=== PATIENT | female | born 1985 ===

== ENCOUNTER → 2022-06-24 | Outpatient (CLI) | payer OTHER ==
[2022-06-25 13:40] LABS: Candida species (DNA Probe) Negative (NEGATIVE); G. vaginalis (DNA Probe) Negative (NEGATIVE); T. vaginalis (DNA Probe) Negative (NEGATIVE)
[2022-06-27 13:34] LABS: Candida species (DNA Probe) Negative (NEGATIVE); G. vaginalis (DNA Probe) Negative (NEGATIVE); T. vaginalis (DNA Probe) Negative (NEGATIVE)
== END | disposition home or self-care (01) ==
LOC: LAB SHORT 17:52
PROVIDERS: Family Medicine
DX: B37.31 Acute candidiasis of vulva and vagina (principal)
CPT/HCPCS: 87480; 87510; 87660

== ENCOUNTER → 2023-03-28 | Outpatient (CLI) | payer BC, OTHER ==
[2023-03-28 17:23] LABS: Hematocrit 38.2 % (33.0-51.0); Hemoglobin 12.3 g/dL (11.5-16.0); Mean Corpuscular HGB 25.9 pg (26.0-34.0); Mean Corpuscular HGB Conc 32.2 g/dL (31.5-36.5); Mean Corpuscular Volume 81 fL (80-100); Mean Platelet Volume 9.8 fL (9.1-12.4); Platelet Count 369 K/mm3 (150-400); RDW Standard Deviation 37.8 fL (35.1-46.3); Red Blood Cell Count 4.74 M/mm3 (3.80-5.20); White Blood Cell Count 8.54 K/mm3 (4.00-11.30)
[2023-03-28 19:42] LABS: Prolactin 9.2 ng/mL; Thyroid Stimulating Hormone 0.716 uIU/mL (0.360-4.800)
== END | disposition home or self-care (01) ==
LOC: LAB SHORT 15:57 → LAB 15:57
PROVIDERS: Family Medicine
DX: N92.6 Irregular menstruation, unspecified (principal)
CPT/HCPCS: 84146; 84443; 84703; 85027

== ENCOUNTER 2024-07-24 23:21 | Emergency (ER) | payer OTHER ==
[~2024-07-24] VITALS: Ht 167.6 cm; Wt 86.2 kg
[2024-07-24 23:52] VITALS: BP 130/89
[2024-07-25] MEDS ORDERED: Ketorolac Tromethamine 30mg Vial IM ONE (01:55)
[2024-07-25] MEDS ORDERED: IBUP600 PO (01:57)
[2024-07-25] MEDS ORDERED: FAMO20 PO (01:57)
== END 2024-07-25 02:22 | disposition home or self-care (01) ==
LOC: ER 23:21
DX: M71.21 Synovial cyst of popliteal space [Baker], right knee (principal)
CPT/HCPCS: 93971; 96372; 99283-25; J1885